=== PATIENT | male | born 1985 | race Caucasian/White ===

== ENCOUNTER 2020-09-23 14:28 | Emergency (ER) | payer OTHER ==
[2020-09-23 14:45] VITALS: BP 108/62; PULSE 94; RESP 20; TEMP 98.3
[2020-09-23] MEDS ORDERED: ACET/COD 300 MG/30 MG STARTER PACK 6 TAB BTL PO STA (15:04)
--- NOTE | 2020-09-23 15:07 | ED ---
Lower Extremity Injury HPI - General Chief Complaint: Extremity Injury, Lower Stated Complaint: Broken Right Foot Time Seen by Provider: 09/23/20 14:49 Source: patient Mode of arrival: wheelchair Limitations: no limitations - History of Present Illness Initial Comments: 34-year-old male presenting to emergency Department with chief complaint of needing orthopedic referral. Patient states that 5 days ago he suffered a right foot fracture and was diagnosed at [facility]. States they applied a splint to his leg, gave him crutches, discharged hin and advised him to follow-up with an commercial specialist. Patient states he attempted to call several orthopedic orifices but they would not take his insurance. States that he was advised by his friend to come to the emergency department for an orthopedic referral. He states there is also pain at the fracture site. States that he was not given any pain medication. Reports he was been taking Tylenol and Motrin for pain. Denies any numbness or tingling. - Related Data Allergies Allergy/AdvReac Type Severity Reaction Status Date / Time No Known Allergies Allergy Verified 09/23/20 14:45 Review of Systems ROS Statement: Those systems with pertinent positive or pertinent negative responses have been documented in the HPI. ROS Other: All systems not noted in ROS Statement are negative. Past Medical History Past Medical History: No Reported History History of Any Multi-Drug Resistant Organisms: None Reported Past Surgical History: No Surgical Hx Reported Past Psychological History: No Psychological Hx Reported Smoking Status: Current every day smoker Past Alcohol Use History: None Reported Past Drug Use History: None Reported General Exam Limitations: no limitations General appearance: alert, in no apparent distress Head exam: Present: atraumatic, normocephalic, normal inspection Eye exam: Present: normal appearance, PERRL, EOMI Pupils: Present: normal accommodation ENT exam: Present: normal exam, normal oropharynx, mucous membranes moist, TM's normal bilaterally, normal external ear exam Neck exam: Present: normal inspection, full ROM. Absent: tenderness Respiratory exam: Present: normal lung sounds bilaterally. Absent: respiratory distress, wheezes, rales Cardiovascular Exam: Present: regular rate, normal rhythm, normal heart sounds. Absent: systolic murmur, diastolic murmur Extremities exam: Present: normal inspection (Posterior leg splint applied to right lower extremities. It is dry and sitting in place.), full ROM, normal capillary refill. Absent: pedal edema, joint swelling, calf tenderness (Unable to detect calf due to splint on right leg) Back exam: Present: normal inspection, full ROM. Absent: tenderness, CVA tenderness (R), CVA tenderness (L) Neurological exam: Present: alert, oriented X3 Psychiatric exam: Present: normal affect, normal mood Skin exam: Present: warm, dry, intact, normal color Course Vital Signs 09/23/20 14:38 Temperature 98.3 F Pulse Rate 94 Respiratory 20 Rate Blood Pressure 108/62 O2 Sat by Pulse 98 Oximetry Medical Decision Making - Medical Decision Making 34-year-old male presenting to emergency Department with a chief complaint of needing orthopedic referral. On physical examination, the splint is dry and appears to be well in place. Patient was given Tylenol 3 starter pack to help alleviate some of the discomfort. I gave the patient multiple orthopedic recommendations. I also gave him contact information for Dr. Redmond who was the orthopedic doctor on-call. Strict return parameters were thoroughly discussed with patient is understanding and agreeable. Case discussed with physician. Disposition Clinical Impression: Foot pain, right Disposition: HOME SELF-CARE Condition: Stable Instructions (If sedation given, give patient instructions): Foot Fracture in Adults (ED) Additional Instructions: Follow-up with commercial specialist. Take given medication as directed. Return to emergency department if symptoms worsen. Is patient prescribed a controlled substance at d/c from ED?: No Referrals: Sunny Torres DO [Primary Care Provider] - 1-2 days Damian Randhawa MD [STAFF PHYSICIAN] - 1-2 days Al Hale DO [Doctor of Osteopathic Medicine] - 1-2 days Fco Ahmadi MD [STAFF PHYSICIAN] - 1-2 days Fernando Fleming DO [Doctor of Osteopathic Medicine] - 1-2 days Time of Disposition: 15:06
== END 2020-09-23 15:31 | disposition home or self-care (01) ==
LOC: EC 14:28
DX: M79.671 Pain in right foot (principal); F17.200 Nicotine dependence, unspecified, uncomplicated; S92.901D Unspecified fracture of right foot, subsequent encounter for fracture with routine healing; X58.XXXD Exposure to other specified factors, subsequent encounter
CPT/HCPCS: 99283